=== PATIENT | male | born 1975 | race Caucasian/White ===

== ENCOUNTER 2024-07-19 23:50 | Inpatient (IN) | payer OTHER, SELFPAY ==
[2024-07-19] VITALS (11 sets, daily range): BP systolic 79–172; BP diastolic 57–120
[2024-07-19 21:24] LABS: Glucose - Point of Care 181 mg/dl (70-99)
[2024-07-19 21:26] LABS: % Basophils 1.1 % (0-2); % Eosinophils 4.7 % (0-6); % Immature Granulocytes 0.9 % (0-0.5); % Lymphocytes 13.9 % (20.5-51.1); % Monocytes 10.3 % (1.7-9.3); % Neutrophils 69.1 % (42.2-75.2); Absolute Basophils 0.2 10^3/uL (0-0.2); Absolute Immature Granulocytes 0.2 10^3/uL (0-0.05); Absolute Lymphocytes 2.9 10^3/uL (1.2-3.4); Absolute Monocytes 2.2 10^3/uL (0.1-0.6); Absolute Neutrophils 14.4 10^3/uL (1.4-6.5); Hematocrit 38.9 % (39.0-52.0); Hemoglobin 14.5 g/dL (13.0-18.0); Mean Corp Hgb Conc. 37.3 g/dL (33.0-37.0); Mean Corpuscular Hgb 32.2 pg (27.0-31.0); Mean Corpuscular Volume 86.3 fL (80.0-94.0); Mean Platelet Volume 8.1 fL (7.4-10.4); Nucleated Red Blood Cells % 0 % (-); Platelet Count 459 10^3/uL (130-400); Red Blood Cell Count 4.51 10^6/uL (4.70-6.10); Red Cell Dist. Width 12.1 % (11.5-14.5); White Blood Cell Count 20.9 10^3/uL (4.8-10.8)
--- NOTE | 2024-07-19 21:29 | ED.GENMED ---
History of Present Illness
General
Chief Complaint: Unresponsive
Source: ambulance crew
Exam Limitations: clinical condition
Time Seen by Provider: 07/19/24 21:26
Nursing documentation reviewed up to this point in time: agreed with
History of Present Illness
History of Present Illness:
49-year-old male with unknown medical history presents to the emergency room via EMS unresponsive. Patient is intubated on arrival and unresponsive, unable to participate in history. Apparently he was not responding to phone calls from family, was
late home from work�they had not heard from him for about 2 hours. EMS called and found him in his office at work unresponsive. He was given 2 mg of Narcan without response. He was GCS less than 7 and so decision made to intubate for airway
protection. Unfortunately mouth was tense on EMS attempts to secure airway. He was given 300 mg of ketamine but was still thrashing and they were unable to orotracheal intubated; he was nasotracheally intubated. His right nare and a 6-0 ET tube
in the field and he arrives to us this way. Vital signs in the field stable he received 100 cc of IV fluid.
UPDATE
I spoke with the patient's sister to obtain collateral history on her arrival: She says that patient does not take good care of himself. She says he has a known history of heart attacks in his past and she thinks high blood pressure as well. She
says that he is a daily drinker and smoker. He does not do any drugs she says. He apparently did not return home from work at normal time and when she went to check on him he was unresponsive in his office. She says he was facedown on the ground.
EMS was called and brought him to the hospital. By the time I was speaking to her he was found to have very low sodium�she reports that he does not take any medicines but has been sick for the past couple days and has been taking naproxen. She
says that he does drink a significant amount of water greater than 16 bottles a day she says. He also is a daily drinker.
Review of Systems
Review of Systems
Unable to obtain full review of systems at this time due to: due to acuity
All Other Systems: Not applicable
Phy Exam
Physical Exam
Physical Exam:
Vitals: Normotensive, tachycardic, respiratory rate 24, afebrile, pulse ox 95%
General: Laying in bed not responding to voice, not localizing to painful stimuli�GCS 5 on arrival
Head: Normocephalic, atraumatic
Nose: Blood around ET tube in the right nare
Eyes: Conjunctiva injected bilaterally, pupils 4 mm and reactive to light bilaterally
Throat: Blood in the oropharynx and dried blood around mouth and nose, tongue appears atraumatic
Neck: Trachea midline, no JVD
Lungs: No chest rise when bagged ET tube but he does have bilateral breath sounds, scattered rhonchi
Heart: Tachycardia with regular rhythm, no murmurs, gallops, or rubs
Abd: Soft, non distended
: Incontinent of urine
Neuro: GCS 5 (E1 V1 M3)
Skin: no rash or signs of acute trauma
Extremities: Warm well-perfused
Scores
Heart Failure Risk
Heart Failure Risk Score: Not Applicable
Heart Score for Chest Pain Patients
STEMI patient?: Not applicable
Withdrawal Assessment of Alcohol
Withdrawal Assessment Completed?: Not applicable
Course
Orders/Labs/Results
Orders:
Orders
07/19/24 21:14
Propofol 1,000,000 Mcg/100 ml [Diprivan] 1,000,000 mcg in 100 ml .ROUTE .STK-MED
07/19/24 21:17
Electrocardiogram (*1) Urgent
Reason for Study: Other
Other Reason for Exam: unresponsive
EKG- Treatment ONCE
07/19/24 21:18
Acetaminophen Urgent
Comment: ADD ON
Alcohol Urgent
Comprehensive Metabolic Panel Urgent
Creatine Phosphokinase Urgent
Comment: AD ON
Salicylate Urgent
Date and Time of Last Dose: ADD ON
Triglycerides Urgent
Comment: ADD ON
07/19/24 21:19
Complete Blood Count/With Diff Urgent
Lactic Acid Q4H
Comment: ON ICE, CANCEL 2ND ORDER IF FIRST LACTIC ACID LEVEL <2
Troponin I Urgent
07/19/24 21:21
COVID-19 Antigen Stat
Source: Nasal Swab
Blood Culture Stat
GEENA Source: Blood/Venous
Specimen Description:
INF RAPID [Influenza A+B Rapid Molecular] Stat
GEENA Source: Nasal Swab
Specimen Description:
07/19/24 21:24
PT/INR [Prothrombin Time] Urgent
PTT Urgent
07/19/24 21:26
Electrocardiogram (*1) Urgent
Reason for Study: Chest Pain
EKG- Treatment ONCE
07/19/24 21:27
CT Chest/abd/pel W Iv Cont Urgent
Comment: wrong order by attending,modified
Reason For Exam: unresponsive, hypotensive
CT Head W/o Iv Contrast Urgent
Comment:
Reason For Exam: unresponsive
CR Chest Portable - 1 View Urgent
Comment:
Reason For Exam: ett
Reason Study Needs to be Portable: Unable to Transport
07/19/24 21:29
Propofol 1,000,000 Mcg/100 ml [Diprivan] 1,000,000 mcg in 100 ml IV NOW
Indication:: Light Sedation
Begin Infusion:: Now
Goal:: RASS 0 to -2
Maximum dose in mcg/kg/min:: 50
Initial dose based on RASS:: Yes
If RASS is:: +1 or pt hemodynamically unstable (SBP < 90mmHg), initiate at 10 mcg/kg/min
If RASS is:: +2, initiate at 20 mcg/kg/min
If RASS is:: greater than or equal to +3, initiate at 30 mcg/kg/min
Titration Instructions:: Titrate by 5-10 mcg/kg/min every 5 minutes until RASS 0 to -2 achieved.
Taper Instructions:: If RASS is at or below goal for 4 consecutive hours decrease infusion by
Taper Instructions:: 5-10 mcg/kg/min every 2 hours to off.
Over-sedation Instructions:: If CPOT 0-2 (at goal) AND RASS -3 to -5 (below goal) decrease sedative by
Over-sedation Instructions:: 50% first. If pain score remains at goal and RASS remains below goal in
Over-sedation Instructions:: 1 hour, decrease opioid infusion by 50%.
Notify provider:: immediately if patient exhibits signs/symptoms of propofol-related
Notify provider:: infusion syndrome.
Additional Instructions:: Patient MUST be mechanically ventilated and MUST receive analgesia.
07/19/24 21:30
Drug Screen, Urine [Urine Drug Abuse Screen] Urgent
Date Specimen was Collected: 07/19/24
Time Specimen was Collected: 21:40
Blood Culture Q30M
GEENA Source: Blood/Venous
Specimen Description:
0.9% Sodium Chloride 1000 ml [Nss] 1,000 ml IV BOLUS
07/19/24 21:31
Urinalysis Reflex To Culture Urgent
Date Specimen was Collected: 07/19/24
Time Specimen was Collected: 21:30
Urine Microscopic Reflex Cult Urgent
07/19/24 21:39
Add On- LAB Urgent
Comments:: acetaminophen, alcohol, Carboxyhemoglobin, cpk, salicylate, triglycerides,
Tests Added?: acetaminophen, alc, Carboxyhemoglobin, cpk, salicylate, triglycer
07/19/24 21:41
Add On- LAB Urgent
Tests Added?: urine drug screen
07/19/24 21:47
Piperacillin/Tazo 3.375 Gram [Zosyn] 3.375 gram in 50 ml IV NOW
Vancomycin [Vancocin] 1,250 mg 0.9% Sodium Chloride 250 ml [Nss] 250 ml IV NOW
07/19/24 22:11
Propofol [Diprivan] 100 mg IV NOW STA
07/19/24 22:12
Osmolality, Random Urine Urgent
Urine Sodium Urgent
07/19/24 22:26
Propofol [Diprivan] 100 mg IV NOW STA
07/19/24 22:38
FentaNYL 1,000 MCG/100 ML [Sublimaze] 1,000 mcg in 100 ml .ROUTE .STK-MED
Portable Chest Xray [CR Chest Portable - 1 View] Urgent
Comment:
Reason For Exam: intubation breathing
Reason Study Needs to be Portable: Unable to Transport
07/19/24 22:39
Propofol [Diprivan] 20 ml .ROUTE .STK-MED
07/19/24 22:43
Hutchison Placement- Treatment ONCE
Reason for insertion: I&O's Critical Care
07/19/24 22:45
NEPHROLOGY CONSULT Urgent
Consulting Provider: Guero Singh V.
Was physician already notified: Yes
07/19/24 22:46
Arterial Blood Gas Urgent
07/19/24 22:50
Aspirin 300 mg RECTAL NOW STA
07/19/24 22:52
CARDIOLOGY CONSULT Urgent
Consulting Provider: Camilo Lei
Was physician already notified: Yes
FentaNYL 1,000 MCG/100 ML [Sublimaze] 1,000 mcg in 100 ml IV NOW
Indication:: Light Sedation
Begin Infusion:: Now
Goal:: pain score </= 1, CPOT 0-2
Maximum dose in mcg/hr:: 300
Continue currently infusing dose and titrate:: Yes
Titration Instructions:: Titrate every 30 minutes if patient exhibits signs of pain or discomfort
Titration Instructions:: (pain score >/= 2, CPOT >/= 3).
Titration Instructions:: Administer bolus dose and increase infusion by 25 mcg/hr.
Taper Instructions:: If pain score at goal for 4 consecutive hours (pain score </= 1, CPOT 0-2)
Taper Instructions:: decrease infusion by 50 mcg/hr every 2 hours.
Taper Instructions:: When dose </= 50 mcg/hr may turn infusion off and consider PRN
Taper Instructions:: intermittent bolus doses only.
Over-sedation Instructions:: If CPOT 0-2 (goal) and RASS -3 to -5 (below goal) decrease sedative by 50%
Over-sedation Instructions:: first. If pain score remains at goal and RASS remains below goal in 1 hour,
Over-sedation Instructions:: decrease opioid infusion by 50%.
Notify provider:: immediately if pt exhibits: chest wall rigidity, hemodynamic instability,
Notify provider:: agitation/pain despite maximum dosing, pain when RASS below goal.
Additional Instructions:: Patient MUST be mechanically ventilated.
Fentanyl Citrate/Pf [Sublimaze] 50 mcg IV [id number] PRN
Fentanyl Citrate/Pf [Sublimaze] 60 mcg IV NOW STA
07/19/24 22:56
Oseltamivir [Tamiflu] 75 mg TUBE NOW STA
07/19/24 23:00
3% Sodium Chloride 250 ml [Sodium Chloride 3%] 250 ml IV ONCE
07/19/24 23:05
Propofol [Diprivan] 100 mg IV NOW STA
07/19/24 23:18
Type And Crossmatch [Type+Screen] Urgent
07/19/24 23:32
Carboxyhemoglobin Urgent
Blood Culture Q30M
GEENA Source: Blood/Venous
Specimen Description:
07/19/24 23:43
Admit/Transfer Patient As Directed
Co-Sign Provider:
Level of Care: Inpatient admission
Assign to:: ICU
Physician / Group: hospitalist
Diagnosis: unresponsive
Reason for Hospitalization: acute respiratory failure
Expected length of stay greater than two midnights?: Yes
ELOS- Estimated Length of Stay in days: 2
I certify the patient meets the requirements for IP care: Yes
07/19/24 23:44
PRN Pain Medication Management As Directed
May give lesser potent ordered pain med per pt: Yes
preference::
Protocol:: Medication orders for pain may be administered in a
manner that supports deferring to patient preference
when the pt is:
- Requesting an ordered lesser potent pain medication.
Least to most potent pain medications are defined
as: acetaminophen < NSAID < tramadol < opioids
(morphine, oxycodone, hydromorphone).
- Requesting a lesser dose of the same medication IF
ORDERED.
- Requesting a less intrusive route of administration
if both routes are prescribed by the provider (PO <
IV).
07/19/24 23:45
Code Status As Directed
Resuscitation Status: Full Code
Propofol [Diprivan] 100 mg IV NOW STA
07/19/24 23:55
ABO2 Urgent
BBK Wristband Number:
Associate notified that ABO2 has been ordered: [id number]
Date: 07/19/24
Time: 23:30
Orthotics Prosthetics Assistant ID: [id number]
07/20/24 01:39
Lactic Acid Q4H
Comment: ON ICE, CANCEL 2ND ORDER IF FIRST LACTIC ACID LEVEL <2
Abnormal Lab Results
07/19/24 07/19/24 07/19/24
21:13 21:18 21:19
WBC 20.9 H 10^3/uL
(4.8-10.8)
RBC 4.51 L 10^6/uL
(4.70-6.10)
Hct 38.9 L %
(39.0-52.0)
MCH 32.2 H pg
(27.0-31.0)
MCHC 37.3 H g/dL
(33.0-37.0)
Plt Count 459 H 10^3/uL
(130-400)
Abs Immat Gran (auto) 0.2 H 10^3/uL
(0-0.05)
Absolute Neuts (auto) 14.4 H 10^3/uL
(1.4-6.5)
Absolute Monos (auto) 2.2 H 10^3/uL
(0.1-0.6)
Absolute Eos (auto) 1.0 H 10^3/uL
(0-0.7)
Immature Gran % 0.9 H %
(0-0.5)
Lymphocytes % 13.9 L %
(20.5-51.1)
Monocytes % 10.3 H %
(1.7-9.3)
PT
APTT
pH
pCO2
pO2
ABG O2 Sat (Measured)
Sodium 113 L* mmol/L
(135-145)
Chloride 84 L mmol/L
(98-107)
Carbon Dioxide 19 L mmol/L
(22-30)
BUN 8 L mg/dl
(9-20)
Creatinine 0.4 L mg/dL
(0.7-1.3)
Glucose 170 H mg/dl
(70-99)
Lactic Acid 3.4 H mmol/L
(0.7-2.0)
Calcium 8.3 L mg/dl
(8.4-10.2)
Creatine Kinase 382 H U/L
(55-170)
Troponin I 2.230 H* ng/ml
Total Protein 6.0 L g/dl
(6.3-8.2)
Urine Ketones
Ur Occult Blood Reflex
Urine Bacteria (Reflex)
Urine Glucose
Urine Albumin (Reflex)
Salicylates < 1.0 L mg/dl
(2.0-20.0)
Acetaminophen < 10 L ug/ml
(10-30)
POC Glucose 181 H mg/dl
(70-99)
07/19/24 07/19/24 07/19/24
21:24 21:31 22:46
WBC
RBC
Hct
MCH
MCHC
Plt Count
Abs Immat Gran (auto)
Absolute Neuts (auto)
Absolute Monos (auto)
Absolute Eos (auto)
Immature Gran %
Lymphocytes %
Monocytes %
PT 15.1 H Sec
(11.4-14.6)
APTT 35.2 H Sec
(23.4-35.0)
pH 7.07 L*
(7.35-7.45)
pCO2 77 H* mmHg
(35-48)
pO2 129 H mmHg
(83-108)
ABG O2 Sat (Measured) 99.1 H %
(94-98)
Sodium
Chloride
Carbon Dioxide
BUN
Creatinine
Glucose
Lactic Acid
Calcium
Creatine Kinase
Troponin I
Total Protein
Urine Ketones 3+ A
(Negative)
Ur Occult Blood Reflex Trace A
(Negative)
Urine Bacteria (Reflex) Few A
(Negative)
Urine Glucose 1+ A
(Negative)
Urine Albumin (Reflex) 1+ A
(Neg - Trace)
Salicylates
Acetaminophen
POC Glucose
07/19/24 21:19
07/19/24 23:32
Vital Signs
Initial and Last Documented VS:
Initial Vital Signs
Pulse Resp BP Pulse Ox
101 30 118/87 95
07/19/24 21:23 07/19/24 21:23 07/19/24 21:23 07/19/24 21:23
Last Documented Vital Signs
Temp Pulse Resp BP Pulse Ox
36.7 C 71 24 100/64 99
07/20/24 02:00 07/20/24 02:30 07/20/24 02:30 07/20/24 02:30 07/20/24 02:30
Procedures
Intubations
Procedure completed by: Jordy Grimaldo MD
Method of Intubation: glidescope
Tube size (cm): 8.0
Placement confirmed by: auscutation, CXR, capnography, placement corrected (pulled back 1 cm) and direct visualization
Breath sounds after intubation: equal
Intubation complications: no complications
Central Line
Left Femoral:
Indication for procedure:: shock
Procedure completed by: Jordy Grimaldo MD
Consent form signed: No
If no, reason: Emergency procedure
Central line lumen: triple
Number of attempts: 1
Central line complications: none
Sterile dressing applied?: Yes
Other
Indication for procedure:: shock, respiratory failure
Procedure completed by: Jordy Grimaldo MD
Additional Procedure:
Arterial Line
After an Kwame test was performed to ensure adequate perfusion, using usual sterile technique the left wrist was prepped using chlorhexidine scrub and draped in sterile fashion. The radial pulse was identified and the wrist was positioned in the
usual fashion. Using the Arrow Radial Arterial Line Kit, a needle was inserted into the radial artery under ultrasound guidance. Arterial blood was seen to pulsate in the flash chamber. The internal guidewire was advanced easily into the radial
artery. The catheter was then advanced over the wire and the needle and wire were withdrawn. The catheter was sutured in place. A sterile dressing was placed over the catheter at the insertion site. The patient tolerated the procedure well. At
the time of procedure completion, the catheter was connected to the youth nutritional monitor and calibrated. Appropriate waveform and blood pressure tracing was observed.
MDM/Problems Addressed
Differential Diagnosis Includes:
Seizure with postictal, drug overdose, stroke/brain hemorrhage
MDM/Problems Addressed:
49-year-old male presents after being found unresponsive. GCS less than 7 in the field and he was intubated nasotracheally for airway management in the field. On arrival he was normotensive but tachycardic. He is afebrile, pulse ox acceptable.
His Accu-Chek is normal. He does have spontaneous respirations, when bagging ET tube no breath sounds heard and no chest rise suggesting that ET tube is no longer in the trachea. He has significant blood in the oropharynx possibly related to
nasotracheal intubation. GCS 5 on arrival�I do have concerns about patient's ability protect his airway at this point and agree that intubation is necessary. Airway vigorously suctioned. IV placed usual labs sent off. ET tube removed from right
nare and patient was intubated orotracheally using RSI and glide scope. Chest x-ray confirms placement. Will treat with propofol for sedation. Obtain collateral history from family on arrival. Sent for stat CT head, CT chest/abdomen/pelvis.
Provide IV fluids. Monitor closely reassess after the above.
Labs reviewed: CBC shows leukocytosis to 21.9, CMP shows marked hyponatremia with a sodium of 113, glucose 170. Urine sodium and osmolality added on. CPK marginally elevated at 382. Lactate 3.4. His troponin is elevated at greater than 2. EKG
no ST elevation. Urinalysis no clear infection. Alcohol level and UDS negative. CT of the head negative for any acute pathology. CT chest/abdomen/pelvis shows severe bilateral pneumonia. He is flu a positive. Covered with broad-spectrum
antibiotics. Give Tamiflu. Case discussed with nephrology regarding severe hyponatremia�recommended starting hypertonic saline at 20 cc/h for total 250 cc. Every 4 hour BMP. Discussed case with cardiology regarding elevated troponin�likely
related to hypoxemia/pulmonary insult, recommended treating with aspirin but hold on heparin for now, trend troponin and start heparin if precipitously uptrending. At this point I think the most likely sequence of events is that patient has been
sick with the flu and has increased his already very high free water intake leading to hyponatremia, seizure, aspiration and pneumonia/ARDS. Will plan admit to the hospital for continued treatment. Case discussed with hospitalist for admission.
After initial admission patient becoming more hypoxic, frothy pink secretions. Progression of infiltrates on repeat chest x-ray. Discussed with hospitalist and sweat box attendant�sweat box attendant en route to evaluate. Concerned patient could be developing
ARDS, may be a candidate for ECMO. Case discussed with [facility] for potential transfer for ECMO. They are reviewing imaging, recommended paralytic and starting Flolan and repeat gas and we will reassess potential transfer for ECMO. Will place arterial
line for frequent blood gases and close hemodynamic monitoring.
ABG improving after above measures. Patient accepted for transfer to [facility] for close monitoring and potential for ECMO in case of decompensation. Accepted for transfer by Dr. No.
After 4 hours of hypertonic saline sodium actually decreased from 113-->105. Discussed with nephrology recommending increasing rate of hypertonic saline to 40 cc/h. We are continuing to closely monitor pending transport to [facility]. Case discussed
with MICU attending at [facility].
Chronic conditions affecting care:
CAD
*Radiology
Radiology exam reviewed: preliminary read by ED provider and radiology read reviewed
*Pulse Oximetry
Patient hypoxic: no
*EKG
Interpreted by ED Provider?: Yes
Heart Rate: 94
Rate: normal
Rhythm: sinus
[place]: normal axis
Interval: long QT
QRS Pattern: normal QRS
Ischemia: no ischemia
*Critical Care Note
Total Time (30-74mins, 75-104mins- exclusive of procedures): 125
comment:
Critical care statement: A total of 125 minutes of critical care time was provided for this patient. This includes management of unstable vital signs, evaluation of the patient at bedside, frequent reassessment, discussion with
consultants/hospitalist, coordinating transfer and review of pertinent medical records. This time was separate from time utilized to perform any aforementioned documented procedures.
Data Reviewed
Source: family and ambulance crew
Patient Management
Discussion with other providers: Hospitalist (Discussed with hospitalist) and General Warehouse Worker (Discussed with nephrology, discussed with cardiology, discussed with sweat box attendant, discussed with critical care team at [facility])
Escalation/DeEscalation of care consider admission/obs:
Admission indicated
ED Attending Note
-
Portions of this chart may have been created with voice recognition software.� Occasional wrong word or��sound alike� substitutions may have occurred due to the inherent limitations of voice recognition software.
Discharge Plan
Departure
Patient Disposition: Acute Care Hospital
Date of Disposition: 07/20/24
Time of Disposition: 01:34
Admit to doctor: Naman
Discharge Problem:
Acute hypoxemic respiratory failure, Encephalopathy, Acute hyponatremia, Elevated troponin, Pneumonia, Influenza
Hospital Transfer
Other hospital: [facility]
I certify that the patient requires transfer: Yes
Discussed case with accepting physician: Dr. No
Reason for transfer: higher level of care
Interventions
Interventions:
*Risk Screen - Suicide Last Done: 07/19/24 21:26
*General Assessment Last Done: 07/19/24 21:23
*Neglect/Abuse Screening Last Done: 07/19/24 21:26
*ED COVID-19 Vaccine History Last Done: 07/19/24 21:23
ED- Neurological Assessment Last Done: 07/19/24 21:46
--- NOTE | 2024-07-19 21:34 | PTCARENOTE ---
2108 Pt arrived via EMS nasally intubated, unresponsive. accucheck 181.
2117 20 etomidate given
2127 100 succ given
2119 Pt intubated by . 24 ERIC.
2115 propofol gtt started at 5.
[2024-07-19 21:38] LABS: Urine Albumin 1+ (Neg - Trace); Urine Bilirubin Negative (Negative); Urine Character Clear (Clear); Urine Color Yellow; Urine Glucose 1+ (Negative); Urine Ketone 3+ (Negative); Urine Leukocyte Negative (Negative); Urine Nitrite Negative (Negative); Urine Occult Blood Trace (Negative); Urine Urobilinogen Negative (Neg - 1+)
[2024-07-19 21:41] LABS: INR 1.16; PT 15.1 Sec (11.4-14.6)
[2024-07-19 21:42] LABS: APTT 35.2 Sec (23.4-35.0)
[2024-07-19] MEDS: NSS 1000 IV (21:42)
[2024-07-19] MEDS: DIPRIVAN 100 IV (21:42)
[2024-07-19 21:46] LABS: COVID-19 Antigen Negative (Negative)
[2024-07-19 21:53] LABS: Lactic Acid 3.4 mmol/L (0.7-2.0)
[2024-07-19 21:55] LABS: Urine Hyaline Cast >15 /LPF (0-2); Urine Squamous Cell 0-2 /LPF (Few)
[2024-07-19 21:56] LABS: Chloride 84 mmol/L (98-107); Potassium 4.8 mmol/L (3.5-5.1); Sodium 113 mmol/L (135-145)
[2024-07-19 21:57] LABS: Urine Amorphous Seen
[2024-07-19 21:58] LABS: ALT (SGPT) 21 U/L (0-50); AST (SGOT) 30 U/L (17-59); Acetaminophen < 10 ug/ml (10-30); Albumin 3.5 g/dl (3.5-5.0); Alcohol None Detected; Alkaline Phosphatase 97 U/L (38-126); Blood Urea Nitrogen 8 mg/dl (9-20); Calcium 8.3 mg/dl (8.4-10.2); Carbon Dioxide 19 mmol/L (22-30); Creatine Phosphokinase 382 U/L (55-170); Glucose 170 mg/dl (70-99); Salicylate < 1.0 mg/dl (2.0-20.0); Total Bilirubin 0.7 mg/dl (0.2-1.3); Triglycerides 116 mg/dl (10-149); eGFR > 60.00
[2024-07-19 21:58] LABS: Urine Bacteria Few (Negative); Urine Red Blood Cell 0-2 /HPF (0-2); Urine White Cell 0-2 /HPF (0-5)
--- NOTE | 2024-07-19 22:09 | PTCARENOTE ---
Pt's wallet, jewelry and belongings given to pt's family.
[2024-07-19 22:10] LABS: Amphetamines Negative (Negative); Barbiturates Negative (Negative); Benzodiazepines Negative (Negative); Buprenorphine Negative (Negative); Cocaine Negative (Negative); Marijuana Negative (Negative); Methadone Negative (Negative); Methamphetamines Negative (Negative); Opiates Negative (Negative); Phencyclidine Negative (Negative); Tricyclic Antidepressants Negative (Negative)
[2024-07-19] MEDS: DIPRIVAN 100 MG IV ×4 (22:11→23:46)
[2024-07-19] MEDS: ZOSYN 50 IV (22:13)
--- NOTE | 2024-07-19 22:14 | PTCARENOTE ---
16 F OG placed, 60 ERIC, dark blood drainage. Propofol and IVF infusing.
[2024-07-19 22:54] LABS: B.E. -9.6 mmol/L; HCO3 22.3 mmol/L (21-28); O2 Saturation % 99.1 % (94-98); PO2 129 mmHg (83-108)
[2024-07-19 22:58] LABS: PCO2 77 mmHg (35-48); pH 7.07 (7.35-7.45)
[2024-07-19] MEDS: SUBLIMAZE 60 MCG IV (23:00)
[2024-07-19] MEDS: SUBLIMAZE 100 IV (23:01)
[2024-07-19] MEDS: ASPIRIN 300 MG RECTAL (23:18)
--- NOTE | 2024-07-19 23:23 | HPS.HSE ---
Family Physician
-
Family Physician: * NONE
Chief Complaint
-
Unresponsive
History of Present Illness
This is a 49-year-old brought to the emergency department after being found unresponsive. Per family has prior history of CAD with a prior MS.
Unknown when was last seen normal. Per family the patient did not return home from work at a normal time today. When she went to check on him he was responsive in his office. He was facedown on the ground. EMS was called. She reports that he
has been sick for the past couple of days and has been taking naproxen. He does also drink 16 bottles of water a day and a daily alcohol drinker. He does not do any drugs. Family confirmed past medical history of heart attacks unknown if he had
any stents. Also possibly history of high blood pressure. He smokes and drinks daily.
According to EMS and by ED records the patient was found unresponsive with a GCS less than 7 in the field, given narcan 2mg without response. Decision was made to intubate, he was trashing, given 300mg of Ketamine, mouth remained tense and was
nasotracheally intubated. And intubated nasotracheally for airway management due to mouth being tense. When he arrived in the emergency department he had a pulse and was normotensive but tachycardic. Blood glucose was normal and did have
spontaneous respiration but remained unresponsive and was being bagged. He had no breath sounds. There was significant oropharyngeal blood likely from traumatic nasotracheal intubation. He was intubated and vigorously suctioned. Sedated and
placed on ventilator with pressor support.
Chest x-ray shows bilateral infiltrates, CT of the chest as well as abdomen pelvis showed severe bilateral pneumonia and without any intra-abdominal abnormalities. CT of the head showed no acute abnormalities.
Na 113, trop 2.23. WBC 20.9. pH 7.07/77. U/A clear. Lactate 3.4, CPK 383. Influenza A +, COVID negative.
Medical History
Past Medical History
Past Medical History: Reports CAD
Past Surgical History: Reports None
Social History
Unable to obtain full social history at this time due to: Patient Intubation
Family History
Family History: Unable to Obtain
Allergies / Home Medications
Allergies reflects when Allergies were last updated in [employer].
Home Medications with original date entered in [employer]
Allergy/Medication List:
Allergies
Allergy/AdvReac Type Severity Reaction Status Date / Time
No Known Allergies Allergy Unverified 07/19/24 21:33
NONE
Review of Systems
-
Unable to obtain full review of systems at this time due to: Patient Intubation
Physical Exam
Vital Signs
Vital Signs
Pulse Resp BP Pulse Ox
130 22 161/120 97
07/19/24 23:01 07/19/24 23:01 07/19/24 23:01 07/19/24 23:01
Physical Exam
General: Respiratory Distress
HEENT: NormoCephalic, Anicteric, Moist mucous membranes and [place] Conjunctivae
Respiratory: Other (Intubated. Clear anteriorly. )
Cardiac: S1/S2 and Tachycardia
GI: Soft, Non Tender, Non Distended and Normal Bowel Sounds
Rectal: Deferred by Provider
Genito-urinary: Clear Urine and [place]
Musculoskeletal: No Clubbing, No Cyanosis and No Edema
Skin: Warm
Neuro: Sedated
Hematologic/Lymphatic: No Lymphadenopathy
Laboratory Results
-
07/19/24 21:19
Laboratory Results
PT 15.1 Sec (11.4-14.6) H 07/19/24 21:24
INR 1.16 07/19/24 21:24
APTT 35.2 Sec (23.4-35.0) H 07/19/24 21:24
pH 7.07 (7.35-7.45) L* 07/19/24 22:46
pCO2 77 mmHg (35-48) H* 07/19/24 22:46
pO2 129 mmHg (83-108) H 07/19/24 22:46
HCO3 22.3 mmol/L (21-28) 07/19/24 22:46
Lactic Acid 3.4 mmol/L (0.7-2.0) H 07/19/24 21:19
Total Bilirubin 0.7 mg/dl (0.2-1.3) 07/19/24 21:18
AST 30 U/L (17-59) 07/19/24 21:18
ALT 21 U/L (0-50) 07/19/24 21:18
Alkaline Phosphatase 97 U/L (38-126) 07/19/24 21:18
Troponin I 2.230 ng/ml H* 07/19/24 21:19
Data Reviewed
-
Diagnostic Radiology: Image Personally Visualized and interpreted
CT Scan: Report Reviewed by me
Medical Tests (Nuc Med, Echo, EKG etc): Image Personally Visualized and interpreted
Lab Data: Labs Reviewed by me
Old Records: Reviewed
Impression/Plan
-
IMPRESSION:
S/P collapse, unresponsiveness with unknown etiology. Xray with bilateral pneumonia and Influenza A positive. Na 113. Troponin 2.23.
PLAN:
AMS - Seizure, stroke, respiratory collapse in setting of infection. Unlikely intoxication based on history. Was normotensive till getting sedatives so unlikely hemodynamic collapse but cannot rule out mi. CT head unremarkable.
- admit to icu
- intubated on pressor support
- no indication for cooling protocol
- serum drug screen, urine drug screen,
- eeg and possible repeat CT pending neuro
- neurology consultation
Pneumonia/influenza - Influenza a with possible aspiration or super-imposed bacterial pneumonia
- blood cultures, sputum culture
- IV Vanc/Zosyn for now
- continue oseltamivir
- ID consultation
Hypoxic and Hypercarbic respiratory failure - bilateral pna, possible edema, ? ARDS
- acute respiratory acidosis on ABG - repeat abg on vent ini 1 hour
- ARDSnet protocol
- spoke with harness and bag inspector. Patient paralysed w/ vec
- maximally sedated and placed on pressors
- ECMO considered. Patient transferred to [place] for ECMO.
NSTEMI - suspect secondary to hypoxia vs primary ischemia. ECG is NSR.
- aspirin 300 pr
- aspirin 81 daily
- trend troponin, if increasing will start heparin gtt
- echo, check bnp
- cardiology aware
Hyponatremia 113. h/o high free water intake, 16 bottles of water, no known meds. AMS. no edema on CT head. Possible seizure
- ED d/w nephro. Starting hypertonic saline
- repeat labs in 4 hours, goal is to increase by 3-4 initial and follow
- checking urine osm and sodium
- nephrology consultation
DVT PPX - heparin sq for now
Code status - Full
[2024-07-19 23:48] LABS: Carboxyhemoglobin 1.8 %
[2024-07-19] MEDS: SODIUM CHLORIDE 3% 250 IV (23:50)
[2024-07-19] MEDS: VANCOCIN 275 MG IV (23:58)
[2024-07-20] VITALS (40 sets, daily range): BP systolic 48–163; BP diastolic 23–102
[2024-07-20] MEDS: LEVOPHED 250 IV (00:20)
[2024-07-20] MEDS: DECADRON 10 MG IV (00:38)
[2024-07-20 00:48] LABS: HCO3 19.3 mmol/L (21-28); PCO2 45 mmHg (35-48); PO2 79 mmHg (83-108); pH 7.24 (7.35-7.45)
[2024-07-20 00:50] LABS: O2 Therapy 95%
[2024-07-20 01:03] LABS: NT-proBNP 1120 pg/ml
[2024-07-20 01:04] LABS: Blood Urea Nitrogen 7 mg/dl (9-20); Calcium 6.8 mg/dl (8.4-10.2); Carbon Dioxide 19 mmol/L (22-30); Chloride 80 mmol/L (98-107); Glucose 405 mg/dl (70-99); Magnesium 1.8 mg/dl (1.6-2.3); Phosphorus 3.9 mg/dl (2.5-4.5); Potassium 4.7 mmol/L (3.5-5.1); Sodium 105 mmol/L (135-145); eGFR > 60.00
[2024-07-20] MEDS: NORCURON 6 MG IV (01:32)
[2024-07-20 02:05] LABS: Lactic Acid 1.2 mmol/L (0.7-2.0)
[2024-07-20 02:17] LABS: ALT (SGPT) 18 U/L (0-50); AST (SGOT) 35 U/L (17-59); Albumin 2.9 g/dl (3.5-5.0); Alkaline Phosphatase 76 U/L (38-126); Blood Urea Nitrogen 7 mg/dl (9-20); Calcium 7.2 mg/dl (8.4-10.2); Carbon Dioxide 17 mmol/L (22-30); Chloride 87 mmol/L (98-107); Estimated Creatinine Clearance > 125 ml/min; Glucose 219 mg/dl (70-99); Potassium 5.2 mmol/L (3.5-5.1); Sodium 113 mmol/L (135-145); Total Bilirubin 1.1 mg/dl (0.2-1.3); Total Protein 5.3 g/dl (6.3-8.2); eGFR > 60.00
[2024-07-20] MEDS: NORCURON 250 MG IV (02:32)
[2024-07-20 02:40] LABS: B.E. -7.8 mmol/L; HCO3 17.6 mmol/L (21-28); O2 Saturation % 99.7 % (94-98); PCO2 35 mmHg (35-48); PO2 145 mmHg (83-108); pH 7.31 (7.35-7.45)
[2024-07-20 07:51] LABS: Creatine Phosphokinase 788 U/L (55-170)
== END 2024-07-20 08:45 | disposition home or self-care (01) | DRG 208 ==
LOC: ED 23:50
PROVIDERS: ADMITTING PHYSICIAN Internal Medicine; ATTENDING PHYSICIAN Internal Medicine; EMERGENCY PHYSICIAN Emergency Medicine
PROC: 0BH18EZ Insertion of Endotracheal Airway into Trachea, Via Natural or Artificial Opening Endoscopic (ICD-10-PCS; 2024-07-19)
PROC: 5A1935Z Respiratory Ventilation, Less than 24 Consecutive Hours (ICD-10-PCS; 2024-07-19)
PROC: 03HC33Z Insertion of Infusion Device into Left Radial Artery, Percutaneous Approach (ICD-10-PCS; 2024-07-19)
DX: J80 Acute respiratory distress syndrome (principal); I21.4 Non-ST elevation (NSTEMI) myocardial infarction; J18.9 Pneumonia, unspecified organism; R57.9 Shock, unspecified; E87.1 Hypo-osmolality and hyponatremia; G93.40 Encephalopathy, unspecified; F17.200 Nicotine dependence, unspecified, uncomplicated; R40.4 Transient alteration of awareness; I25.2 Old myocardial infarction; I25.10 Atherosclerotic heart disease of native coronary artery without angina pectoris; J10.1 Influenza due to other identified influenza virus with other respiratory manifestations; Z11.52 Encounter for screening for COVID-19
CPT/HCPCS: 31500; 36556; 51702; 70450; 71045; 71260; 74177; 80048; 80053; 80143; 80179; 80306; 81003; 81015; 82077; 82375; 82550; 82805; 82962; 83605; 83735; 83880; 84100; 84478; 84484; 85025; 85610; 85730; 86850; 86900; 86901; 87040; 87502; 87811; 93005; 94002; 96374; 96375; 96376; 99291; 99292; J1325; Q9967